=== PATIENT | male | born 1970 | race Caucasian/White ===

== ENCOUNTER 2017-07-18 17:48 | Emergency (ER) | payer SELFPAY ==
[2017-07-18 18:28] LABS: UDS - AMPHET NEGATIVE QUAL (NEGATIVE); UDS - BARB NEGATIVE QUAL (NEGATIVE); UDS - BENZO NEGATIVE QUAL (NEGATIVE); UDS - COCAINE NEGATIVE QUAL (NEGATIVE); UDS - OPIATE NEGATIVE QUAL (NEGATIVE); UDS - PCP NEGATIVE QUAL (NEGATIVE); UDS - THC POSITIVE QUAL (NEGATIVE)
[2017-07-18 18:30] LABS: APPEARANCE HAZY (CLEAR); BILIRUBIN NEGATIVE (NEGATIVE); COLOR DK YELLOW (YELLOW); GLUCOSE NEGATIVE (NEGATIVE); KETONE SMALL mg/dL (NEGATIVE); NITRITE NEGATIVE (NEGATIVE); PROTEIN TRACE mg/dL (NEGATIVE); UROBILINOGEN NORMAL (NORMAL)
[2017-07-18 18:37] LABS: BACTERIA MODERATE /hpf (NONE SEEN)
[2017-07-18 18:38] LABS: EPITHELIAL CELLS 0-5 /hpf (0-5)
[2017-07-18 18:40] LABS: BASOPHILS 0.2 % (0-2); EOSINOPHILS 0 % (0-7); HEMATOCRIT 44.4 % (42.0-54.0); IMMATURE GRANULOCYTES 0.2 % (0-5); LYMPHOCYTES 9.7 % (15-50); MCH 30.7 pg (26.0-34.0); MCV 85.1 fL (80.0-100.0); MEAN PLATELET VOLUME 9.6 fL (7.4-10.4); MONOCYTES 8.2 % (2-11); NEUTROPHILS 81.7 % (40-80); PLATELET COUNT 246 10x3/uL (130-400); RBC 5.22 10x6/uL (4.20-6.10); WBC 8.9 10x3/uL (4.8-10.8)
[2017-07-18 18:54] LABS: ALKALINE PHOSPHATASE 78 U/L (46-116); ALT (SGPT) 26 U/L (10-68); CALC OSMOLALITY 281 mosm/kg (275-300); CALCIUM 9.2 mg/dL (8.5-10.1); CARBON DIOXIDE 24.7 mmol/L (21.0-32.0); CHLORIDE - SERUM 101 mmol/L (98-107); CREATININE - SERUM 1.1 mg/dL (0.6-1.3); GLUCOSE 144 mg/dL (74-106); POTASSIUM - SERUM 3.8 mmol/L (3.5-5.1); PROTEIN - SERUM 7.8 g/dL (6.4-8.2); SODIUM 138 mmol/L (136-145); UREA NITROGEN 22 mg/dL (7-18); eGFR NON AFRICAN AMERICAN 76 mL/min (90-120)
== END 2017-07-18 19:30 | disposition home or self-care (01) ==
LOC: D.ER 17:48
PROVIDERS: Nurse Practitioner Family
DX: R11.2 Nausea with vomiting, unspecified (principal); N39.0 Urinary tract infection, site not specified; F41.9 Anxiety disorder, unspecified

== ENCOUNTER 2017-07-21 16:14 | Emergency (ER) | payer SELFPAY ==
[2017-07-21 16:56] LABS: BASOPHILS 0.1 % (0-2); EOSINOPHILS 0.2 % (0-7); HEMATOCRIT 41.1 % (42.0-54.0); HEMOGLOBIN 14.7 g/dL (13.5-17.5); IMMATURE GRANULOCYTES 0.4 % (0-5); LYMPHOCYTES 15.7 % (15-50); MCHC 35.8 g/dL (31.0-37.0); MCV 83.9 fL (80.0-100.0); MEAN PLATELET VOLUME 9.5 fL (7.4-10.4); MONOCYTES 9.2 % (2-11); NEUTROPHILS 74.4 % (40-80); PLATELET COUNT 243 10x3/uL (130-400); RDW 12.8 % (11.5-14.5); WBC 15.5 10x3/uL (4.8-10.8)
[2017-07-21 17:06] LABS: APPEARANCE HAZY (CLEAR); BILIRUBIN NEGATIVE (NEGATIVE); COLOR DK YELLOW (YELLOW); GLUCOSE NEGATIVE (NEGATIVE); KETONE LARGE mg/dL (NEGATIVE); NITRITE NEGATIVE (NEGATIVE); PROTEIN TRACE mg/dL (NEGATIVE); UROBILINOGEN NORMAL (NORMAL)
[2017-07-21 17:07] LABS: UDS - AMPHET NEGATIVE QUAL (NEGATIVE); UDS - BARB NEGATIVE QUAL (NEGATIVE); UDS - BENZO NEGATIVE QUAL (NEGATIVE); UDS - COCAINE NEGATIVE QUAL (NEGATIVE); UDS - OPIATE POSITIVE QUAL (NEGATIVE); UDS - PCP NEGATIVE QUAL (NEGATIVE); UDS - THC POSITIVE QUAL (NEGATIVE)
[2017-07-21 17:08] LABS: BACTERIA MODERATE /hpf (NONE SEEN); EPITHELIAL CELLS 0-5 /hpf (0-5); GRANULAR CAST RARE /lpf (NONE SEEN); MUCUS >1+ /lpf (NONE SEEN); RED CELLS - URINE 0-5 /hpf (0-5); WHITE CELLS - URINE 0-5 /hpf (0-5)
[2017-07-21 17:11] LABS: ALBUMIN 3.8 g/dL (3.4-5.0); ALKALINE PHOSPHATASE 67 U/L (46-116); ALT (SGPT) 29 U/L (10-68); AMYLASE - SERUM 50 U/L (25-115); BILIRUBIN - TOTAL 0.69 mg/dL (0.2-1.3); CALC OSMOLALITY 276 mosm/kg (275-300); CALCIUM 8.7 mg/dL (8.5-10.1); CARBON DIOXIDE 28.2 mmol/L (21.0-32.0); CHLORIDE - SERUM 99 mmol/L (98-107); CREATININE - SERUM 0.8 mg/dL (0.6-1.3); GLUCOSE 98 mg/dL (74-106); LIPASE 81 U/L (73-393); PROTEIN - SERUM 7.1 g/dL (6.4-8.2); SODIUM 138 mmol/L (136-145); UREA NITROGEN 14 mg/dL (7-18); eGFR NON AFRICAN AMERICAN > 90 mL/min (90-120)
[2017-07-21 17:12] LABS: HELICOBACTER PYLORI IGG NEGATIVE (NEGATIVE)
[2017-07-21 17:13] LABS: POTASSIUM - SERUM 2.9 mmol/L (3.5-5.1)
== END 2017-07-21 22:32 | disposition home or self-care (01) ==
LOC: D.ER 16:14
PROVIDERS: Nurse Practitioner Family
DX: K21.9 Gastro-esophageal reflux disease without esophagitis (principal); R11.10 Vomiting, unspecified; N39.0 Urinary tract infection, site not specified; Z91.14 Patient's other noncompliance with medication regimen

== ENCOUNTER 2017-10-18 13:10 | Inpatient (IN) | payer MEDICAID ==
[~2017-10-18] VITALS: Ht 167.6 cm; Wt 52.2 kg
--- NOTE | ~2017-10-18 | HP ---
PATIENT: JUSTYN GALEAS MEDICAL RECORD: [id number] ACCOUNT: [id number] LOCATION:[facility] [place] : 68 ADMISSION DATE: 10/19/17 HISTORY AND PHYSICAL EXAMINATION REASON FOR ADMISSION: Intractable vomiting and leukocytosis. HISTORY OF PRESENT ILLNESS: The patient is a 46-year-old male who states that he has had episodes over the years of vomiting undiagnosed. He states that he felt well until 3 days before admission, he woke up nauseated even having intractable vomiting for the last 72 hours. Became very weak, felt feverish. For that reason, he came to the Emergency Room. He had vague abdominal pain as well. Denies any constipation, blood per rectum or hematemesis, but has had some loose stool. He drinks well water intermittently. He also admits to significant anxiety in his life and trouble with chronic insomnia. Said he had remote EGD when he lived in [place] years ago, but did not show any abnormalities. He has never had a colonoscopy. There is no family history of bowel disease. PAST MEDICAL HISTORY: Chronic anxiety, chronic insomnia. PAST SURGICAL HISTORY: He had a right shoulder surgery with ORIF for fracture and he had a blowout fracture of his left eye with surgery. 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 He is not , has no children. His mother lives in town locally. Nonsmoker, admits to occasional alcohol. FAMILY HISTORY: Father from a gunshot wound. He was murdered. Mother has AFib, ASHD, history of stroke and hyperlipidemia. MEDICATIONS: The patient states he takes no medications except occasional Benadryl to help with sleep. ALLERGIES: None known. REVIEW OF SYSTEMS: GENERAL: He has been very fatigued with hot and cold sweats for the last 3 days. He has had poor appetite. He has had some weight loss he thinks. HEENT: No recent visual change, sinus congestion, sore throat or hearing difficulty. RESPIRATORY: No shortness of breath or cough. CARDIAC: No chest pain, palpitations, claudication, or edema. GASTROINTESTINAL: Nausea with vomiting, intractable. No hematemesis. He has had some diarrhea without blood per rectum. Denies history of gallbladder disease. ENDOCRINE: Denies polyuria, polydipsia, heat or cold intolerance. GENITOURINARY: Denies nocturia, dysuria. INTEGUMENT: No rash or itching. PSYCHIATRIC: Admits to anxiety, but not depressed mood. MUSCULOSKELETAL: Chronic arthralgias in his right shoulder. PHYSICAL EXAMINATION: VITAL SIGNS: His height is 5 feet 6 inches, weight 120 pounds or 54.43 kilos. Temperature is 99.1 orally, pulse 116 and regular, respirations are 20, blood HISTORY AND PHYSICAL [id number] GALEAS,JUSTYN pressure 150/78, O2 sats 96% on room air. GENERAL: Thin, alert male who appears in mild distress due to illness. HEENT: Eyes are clear. Oropharynx unremarkable. NECK: No bruits or masses. CHEST: Clear. HEART: Tachycardic without murmur. ABDOMEN: Soft, scaphoid, nontender. GENITOURINARY: Deferred. EXTREMITIES: No CCE. He has healed surgical scar over his right lateral proximal humerus. NEUROLOGICAL: Grossly intact. Motor and sensory; memory is intact. Gait is normal. SKIN: Turgor is poor. [place]: [place] [address], with 65 polys, H&H is 17 and 48.2 respectively. Urinalysis shows a pH of 5, specific gravity 1.025, 1+ protein, small ketones, trace blood, 2 to 5 white and red cells with moderate bacteria. Potassium is 3.4, sodium is low at 132, anion gap is 16.9, BUN is 20, creatinine is 1.3, glucose is normal at 92. Liver functions are normal. UDS is pending. CT of the abdomen and pelvis is normal. ASSESSMENT: 1. Intractable vomiting. 2. Hyponatremia. 3. Hypokalemia. 4. Abdominal pain. 5. Bacteriuria. PLAN: The patient will be admitted, held n.p.o., IV Zofran, IV fluid replacement. Culture urine and check UDS. Further workup pending clinical course. We will also give empiric PPI. TRANSINT:[id number] Voice Confirmation ID: [id number] DOCUMENT ID: [id number] LIBRA HEADLEY MD at 2037 CC: [id number] DICTATION DATE: 10/18/171935 PALLIATIVE NURSE: 10/18/17 2319 ADM IN [facility] [address] [facility] [place] [address]
[2017-10-18 13:50] LABS: BASOPHILS 0.1 % (0-2); EOSINOPHILS 0.3 % (0-7); HEMATOCRIT 48.2 % (42.0-54.0); HEMOGLOBIN 17.4 g/dL (13.5-17.5); IMMATURE GRANULOCYTES 0.5 % (0-5); LYMPHOCYTES 21.9 % (15-50); MCH 31.1 pg (26.0-34.0); MCHC 36.1 g/dL (31.0-37.0); MCV 86.1 fL (80.0-100.0); NEUTROPHILS 65.2 % (40-80); RDW 12.7 % (11.5-14.5); WBC 19.8 10x3/uL (4.8-10.8)
[2017-10-18 13:51] LABS: PLATELET COUNT 334 10x3/uL (130-400)
[2017-10-18 13:55] LABS: APPEARANCE HAZY (CLEAR); BILIRUBIN NEGATIVE (NEGATIVE); COLOR YELLOW (YELLOW); GLUCOSE NEGATIVE (NEGATIVE); KETONE SMALL mg/dL (NEGATIVE); NITRITE NEGATIVE (NEGATIVE); PROTEIN 1+ mg/dL (NEGATIVE); SPECIFIC GRAVITY 1.025 (1.005-1.020); UROBILINOGEN NORMAL (NORMAL)
[2017-10-18 14:04] LABS: ALBUMIN 4.7 g/dL (3.4-5.0); ANION GAP 16.9 mmol/L (8-16); BILIRUBIN - TOTAL 1.3 mg/dL (0.2-1.3); CARBON DIOXIDE 29.5 mmol/L (21.0-32.0); CREATININE - SERUM 1.3 mg/dL (0.6-1.3); POTASSIUM - SERUM 3.4 mmol/L (3.5-5.1); PROTEIN - SERUM 8.7 g/dL (6.4-8.2)
[2017-10-18 14:10] LABS: AMORPHOUS SEDIMENT <1+ /lpf (NONE SEEN); BACTERIA MODERATE /hpf (NONE SEEN); EPITHELIAL CELLS 0-5 /hpf (0-5); GRANULAR CAST 0-5 /lpf (NONE SEEN); MUCUS >1+ /lpf (NONE SEEN); RED CELLS - URINE 0-5 /hpf (0-5); WHITE CELLS - URINE 0-5 /hpf (0-5)
[2017-10-18 18:14] VITALS: BP 127/77; BMI 18.6
[2017-10-18 20:00] VITALS: BP 124/76
[2017-10-18 21:50] LABS: HELICOBACTER PYLORI IGG NEGATIVE (NEGATIVE)
[2017-10-19] VITALS: BP 137/74
[2017-10-19 04:00] VITALS: BP 144/81
[2017-10-19 05:01] LABS: BASOPHILS 0.1 % (0-2); EOSINOPHILS 0.1 % (0-7); HEMATOCRIT 39.7 % (42.0-54.0); IMMATURE GRANULOCYTES 0.4 % (0-5); LYMPHOCYTES 12.6 % (15-50); MCHC 34.8 g/dL (31.0-37.0); MCV 86.3 fL (80.0-100.0); MEAN PLATELET VOLUME 9.4 fL (7.4-10.4); MONOCYTES 8.6 % (2-11); NEUTROPHILS 78.2 % (40-80); PLATELET COUNT 302 10x3/uL (130-400); RDW 12.7 % (11.5-14.5)
[2017-10-19 05:05] LABS: HEMOGLOBIN 13.8 g/dL (13.5-17.5); WBC 12.3 10x3/uL (4.8-10.8)
[2017-10-19 05:28] LABS: ALKALINE PHOSPHATASE 62 U/L (46-116); ALT (SGPT) 20 U/L (10-68); CALCIUM 7.8 mg/dL (8.5-10.1); CARBON DIOXIDE 26.1 mmol/L (21.0-32.0); CHLORIDE - SERUM 102 mmol/L (98-107); GLUCOSE 118 mg/dL (74-106); POTASSIUM - SERUM 3.5 mmol/L (3.5-5.1); SODIUM 137 mmol/L (136-145)
[2017-10-19 05:29] LABS: ALBUMIN 3.4 g/dL (3.4-5.0); CALC OSMOLALITY 276 mosm/kg (275-300); CREATININE - SERUM 0.9 mg/dL (0.6-1.3); PROTEIN - SERUM 6.4 g/dL (6.4-8.2); UREA NITROGEN 17 mg/dL (7-18); eGFR NON AFRICAN AMERICAN > 90 mL/min (90-120)
[2017-10-19 07:41] LABS: UDS - AMPHET NEGATIVE QUAL (NEGATIVE); UDS - BARB NEGATIVE QUAL (NEGATIVE); UDS - BENZO NEGATIVE QUAL (NEGATIVE); UDS - COCAINE NEGATIVE QUAL (NEGATIVE); UDS - OPIATE NEGATIVE QUAL (NEGATIVE); UDS - PCP NEGATIVE QUAL (NEGATIVE); UDS - THC POSITIVE QUAL (NEGATIVE)
[2017-10-19 08:24] VITALS: BP 121/72
[2017-10-19 12:10] VITALS: BP 126/68
[2017-10-19 16:39] VITALS: BP 134/68
[2017-10-19 22:35] VITALS: BP 117/70
[2017-10-20 01:02] VITALS: BP 106/49
[2017-10-20 06:03] LABS: BASOPHILS 0.2 % (0-2); EOSINOPHILS 2.1 % (0-7); HEMATOCRIT 37.6 % (42.0-54.0); HEMOGLOBIN 12.9 g/dL (13.5-17.5); IMMATURE GRANULOCYTES 0.2 % (0-5); LYMPHOCYTES 36.7 % (15-50); MCH 29.7 pg (26.0-34.0); MCHC 34.3 g/dL (31.0-37.0); MCV 86.6 fL (80.0-100.0); MEAN PLATELET VOLUME 9.4 fL (7.4-10.4); MONOCYTES 12.7 % (2-11); NEUTROPHILS 48.1 % (40-80); PLATELET COUNT 269 10x3/uL (130-400); RBC 4.34 10x6/uL (4.20-6.10); RDW 12.7 % (11.5-14.5); WBC 12.7 10x3/uL (4.8-10.8)
[2017-10-20 06:33] LABS: ALKALINE PHOSPHATASE 54 U/L (46-116); ALT (SGPT) 20 U/L (10-68); AMYLASE - SERUM 40 U/L (25-115); CALC OSMOLALITY 282 mosm/kg (275-300); CALCIUM 7.8 mg/dL (8.5-10.1); CARBON DIOXIDE 26.9 mmol/L (21.0-32.0); CHLORIDE - SERUM 107 mmol/L (98-107); CREATININE - SERUM 0.9 mg/dL (0.6-1.3); GLUCOSE 108 mg/dL (74-106); LIPASE 94 U/L (73-393); POTASSIUM - SERUM 3.2 mmol/L (3.5-5.1); PROTEIN - SERUM 5.7 g/dL (6.4-8.2); SODIUM 142 mmol/L (136-145); eGFR NON AFRICAN AMERICAN > 90 mL/min (90-120)
[2017-10-20 06:34] LABS: UREA NITROGEN 10 mg/dL (7-18)
[2017-10-20 08:26] VITALS: BP 124/75
[2017-10-20 11:42] VITALS: BP 124/72
[2017-10-20 13:32] VITALS: Ht 167.6 cm; Wt 52.2 kg
[2017-10-20] MEDS ORDERED: ULTRACET TABLET1 TAB PO (13:34)
[2017-10-20 13:42] VITALS: BP 117/70
== END 2017-10-20 14:57 | disposition home or self-care (01) | DRG 418 ==
LOC: D.ER 13:10 → D.MS 16:46 → OBSVTIME 16:46 → D.MS 10-19 17:32
PROVIDERS: Family Medicine; Surgery
PROC: 0FT44ZZ Resection of Gallbladder, Percutaneous Endoscopic Approach (ICD-10-PCS; principal; 2017-10-20 10:15)
DX: K82.8 Other specified diseases of gallbladder (principal); E87.1 Hypo-osmolality and hyponatremia; D72.829 Elevated white blood cell count, unspecified; E87.6 Hypokalemia; R82.71 Bacteriuria; F12.90 Cannabis use, unspecified, uncomplicated